=== PATIENT | male | born 1955 | race Caucasian/White ===

== ENCOUNTER 2021-04-04 07:37 | Emergency (ER) | payer OTHER ==
[~2021-04-04] VITALS: Ht 172.7 cm; Wt 76.4 kg
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
[2021-04-04 08:18] VITALS: BP 184/87
[2021-04-04] MEDS ORDERED: KETOROLAC 30 MG/1 ML IM ONE (08:30)
[2021-04-04] MEDS ORDERED: METHOCARBAMOL 750 MG TABLET PO ONE (08:30)
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
== END 2021-04-04 08:43 | disposition home or self-care (01) ==
LOC: ED 08:15
DX: M54.2 Cervicalgia (principal); G89.29 Other chronic pain; M19.90 Unspecified osteoarthritis, unspecified site
CPT/HCPCS: 99281